=== PATIENT | female | born 2005 | race Caucasian/White ===

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

== ENCOUNTER 2023-03-02 22:19 | Emergency (ER) | payer SELFPAY ==
[2023-03-02 22:20] VITALS: BP 110/72; PULSE 140; RESP 16; TEMP 37.6; O2SAT 99
[2023-03-02 22:52] VITALS: O2SAT 99
[2023-03-02 23:09] LABS: Influenza A QL RT-PCR Negative (Negative); Influenza B QL RT-PCR Negative (Negative); RSV RNA, RT-PCR Negative (Negative); SARS-CoV-2 RNA PCR Positive (Negative)
--- NOTE | 2023-03-02 23:39 | ED.URI ---
HPI - URI/Sore Throat General Chief Complaint: Upper Respiratory Infection Stated Complaint: COVID Time Seen by Provider: 03/02/23 22:58 History of Present Illness HPI Narrative: 17-year-old female reports for evaluation for body aches, congestion, headache, Productive cough, sore throat right ear pain this since yesterday. Patient states she had a positive at home COVID test. States she went to [facility] ED with a tender weeks and came to the ER for evaluation. She states that her fevers 99.7 but when she went to [facility], she was told her temp was 100.9. She has not taken any antipyretics. she is reporting generalized body aches especially in her low back. LMP was February 09. Denies abdominal pain, dysuria or hematuria, vomiting or diarrhea. She does report associated nausea. Related Data Allergies Allergy/AdvReac Type Severity Reaction Status Date / Time Iodinated Contrast Media Allergy Mild Nausea and Verified 06/01/22 16:00 Vomiting Review of Systems Review of Systems: CONSTITUTIONAL: Denies fever, chills, or sweats. EYES: Denies visual changes, redness, or discharge. ENT: see HPI CARDIOVASCULAR: Denies chest pain, palpitations, or edema. RESPIRATORY: See HPI GASTROINTESTINAL: Denies abdominal pain, nausea, vomiting, or diarrhea. GENITOURINARY: Denies dysuria or hematuria. SKIN: Denies rash or itching. MUSCULOSKELETAL: see HPI NEUROLOGIC: Denies headache, numbness, or weakness. PSYCHIATRIC: Denies anxiety or depression. PMFSH Past Medical History Medical History No active medical problems Surgical History Surgical History History of eye surgery Social History Social History Smoking status: Current some day smoker Tobacco type: e-cigarettes/vaping Alcohol intake: never Substance use: never Living arrangements: with family Occupation/Education: occupation Gender identity (if verbalized by the patient): Female Sexual Orientation (if Verbalized by the Patient): Straight or Heterosexual Exam Narrative: GENERAL: Well-appearing, well-nourished, and in no acute distress. patient resting comfortably in exam bed. She is pleasant and conversational. HEAD: Normocephalic, atraumatic. EYES: PERRLA and EOMI. ENT: Nares clear, no rhinorrhea or epistaxis. Mucous membranes moist. Posterior pharynx without erythema or edema. Bilateral tonsils without hypertrophy or exudates. Uvula is midline. Bilateral TMs are vazquez nonbulging. Normal canals. No mastoid tenderness. NECK: Supple. CHEST: Clear to auscultation. No respiratory distress. HEART: Regular rate and rhythm. No murmur heard. Normal peripheral pulses. ABDOMEN: Soft, nontender, nondistended, normal active bowel sounds. EXTREMITIES: Normal range of motion. No edema. SKIN: Warm, dry, no rash. NEURO: No focal deficits. Alert and oriented x3. Cranial nerves 2-12 intact. Strength 5/5 in BUE and BLE. Sensation intact throughout. Normal [id number]. No pronator drift. Course Vital Signs Vital signs: Vital Signs Temperature 99.7 F H 03/02/23 22:20 Pulse Rate 140 H 03/02/23 22:20 Respiratory Rate 16 03/02/23 22:20 Blood Pressure 110/72 03/02/23 22:20 Pulse Oximetry 99 03/02/23 22:20 Oxygen Delivery Room Air 03/02/23 22:20 Temperature 99.7 F H 03/02/23 22:20 Pulse Rate 79 03/03/23 01:04 Respiratory Rate 14 03/03/23 01:04 Blood Pressure 118/71 03/03/23 01:04 Pulse Oximetry 100 03/03/23 01:04 Oxygen Delivery Room Air 03/02/23 22:52 MDM - URI/Sore Throat MDM Narrative Medical decision making narrative: 17-year-old female reports for evaluation for generalized body aches, sore throat, cough and congestion, otalgia since yesterday. See HPI for further history triage vital significant for tachycardia
[2023-03-02 23:57] LABS: Basophils Percent Auto 0.2 % (0.2-1.2); Eosinophils Percent Auto 0.2 % (0-4.4); Hematocrit 40.1 % (37.0-47.0); Hemoglobin 12.9 g/dL (12.0-15.0); Immature Granulocyte Absolute 0.01 K/mm3 (0.00-0.031); Immature Granulocyte Percent A 0.2 % (0-0.5); Lymphocytes Absolute Auto 0.58 K/mm3 (0.9-3.2); Lymphocytes Percent Auto 10.5 % (18.3-44.2); Mean Corpuscular HGB Conc 32.2 g/dl (32-36); Mean Corpuscular Hemoglobin 27.3 pg (26-34); Mean Platelet Volume 11.5 fl (7.4-10.4); Monocytes Absolute Auto 0.8 K/mm3 (0.1-0.6); Monocytes Percent Auto 14.5 % (2.6-8.5); Neutrophils Absolute Auto 4.1 K/mm3 (1.3-6.7); Neutrophils Percent Auto 74.4 % (45.5-73.1); Platelet Count Result 209 k/mm3 (150-375); Red Blood Count 4.72 M/mm3 (4.2-5.4); Red Cell Distribution Width 12.6 % (11.5-14.5); White Blood Count 5.5 K/mm3 (4.5-10.0)
[2023-03-03 00:07] LABS: Anion Gap 13 mmol/L (8-16); Blood Urea Nitrogen 10 mg/dL (8-21); Calcium 9.4 mg/dL (8.9-10.7); Carbon Dioxide 21 mmol/L (22-30); Chloride 101 mmol/L (98-107); Estimated CRCL calculation 88 ml/min; Estimated Glomerular Filt Rate > 60; Glucose 99 mg/dL (65-110); Potassium 3.7 mmol/L (3.4-5.0); Sodium 135 mmol/L (134-143)
[2023-03-03] MEDS: diphenhydrAMINE HCl INJ 50 MG/ML VIAL 25 MG IV PUSH (00:07)
[2023-03-03] MEDS: PROCHLORPERAZINE EDISYLATE 10 MG/2 ML VIAL IV PUSH (00:07)
[2023-03-03] MEDS: ACETAMINOPHEN 500 MG TABLET 1000 MG PO (00:07)
[2023-03-03 00:31] LABS: SPREG INTERNAL CONTROL Positive; Serum Qual hCG Negative
[2023-03-03 00:44] VITALS: O2SAT 94
[2023-03-03] MEDS: KETOROLAC 30 MG/ML VIAL (*BKC) IV PUSH (00:57)
[2023-03-03 01:04] VITALS: BP 118/71; PULSE 79; RESP 14; O2SAT 100
== END 2023-03-03 01:05 | disposition home or self-care (01) ==
LOC: ANHED 03-03 00:39
PROVIDERS: Emergency Medicine; Emergency Provider Physician Assistant
DX: U07.1 COVID-19 (principal); F17.290 Nicotine dependence, other tobacco product, uncomplicated; Z20.822 Contact with and (suspected) exposure to COVID-19
CPT/HCPCS: 36415; 80048; 84703; 85025; 87637; 96374; 96375; 99284; A9270; J0780; J1200; J1885

== ENCOUNTER 2025-04-03 00:10 | Emergency (ER) | payer OTHER, SELFPAY ==
[2025-04-03 00:18] VITALS: BP 103/66; PULSE 93; RESP 20; TEMP 36.7; O2SAT 100
== END 2025-04-03 01:04 | disposition left against medical advice (07) ==
LOC: ANHED 00:46
DX: Z53.21 Procedure and treatment not carried out due to patient leaving prior to being seen by health care provider (principal)
CPT/HCPCS: 99199